=== PATIENT | male | born 1960 | race Caucasian/White ===

== ENCOUNTER → 2016-12-15 | Outpatient (CLI) | payer OTHER ==
--- NOTE | 2016-12-15 11:02 | ECHOF ---
Referral Reason:E78.5 Hyperlipidemia I10 HTN R00.1 Bradycardia MEASUREMENTS -------- HEIGHT: 177.8 cm WEIGHT: 122.5 kg BP: RVIDd: 3.3 cm (< 3.3) IVSd: 1.1 cm (0.6 - 1.1) LVIDd: 3.9 cm (3.9 - 5.3) LVPWd: 1.2 cm (0.6 - 1.1) IVSs: 1.5 cm LVIDs: 3.2 cm LVPWs: 1.3 cm LA Diam: 3.8 cm (2.7 - 3.8) MV EXCURSION: 22.213 mm (> 18.000) MV EF SLOPE: 133 mm/s (70 - 150) EPSS: 0.2 cm MV E Je: 0.58 m/s MV DecT: 140 ms MV A Je: 0.53 m/s MV E/A Ratio: 1.10 RAP: 5.00 mmHg RVSP: 14.20 mmHg FINDINGS -------- Sinus rhythm. This was a technically adequate study. Morbid Obesity The left ventricular size is normal. There is mild concentric left ventricular hypertrophy. Overa ll left ventricular systolic function is normal with, an EF between 55 - 60 %. The right ventricle is normal in size. The left atrial size is normal. The right atrial size is normal. The aortic valve is trileaflet, and appears structurally normal. No aortic stenosis or regurgitation. The mitral valve is normal. Mild mitral regurgitation is present. Mild tricuspid regurgitation present. There is no evidence of pulmonary hypertension. The right v entricular systolic pressure, as measured by Doppler, is 14.20mmHg. Trace/mild (physiologic) pulmonic regurgitation. The aortic root size is normal. There is no pericardial effusion. CONCLUSIONS -------- 1. Sinus rhythm. 2. This was a technically adequate study. 3. Morbid Obesity 4. There is mild concentric left ventricular hypertrophy. 5. Overall left ventricular systolic function is normal with, an EF between 55 - 60 %. 6. The left atrial size is normal. 7. The aortic valve is trileaflet, and appears structurally normal. No aortic stenosis or regurgitati on. 8. Mild mitral regurgitation is present. 9. Mild tricuspid regurgitation present. 10. There is no evidence of pulmonary hypertension. 11. Trace/mild (physiologic) pulmonic regurgitation. 12. The aortic root size is normal. 13. There is no pericardial effusion. ROUTER TENDER: Shahrzad Sharma RDCS
== END | disposition home or self-care (01) ==
LOC: RADECHMAIN 06:54
PROVIDERS: ATTEND Internal Medicine
DX: I08.1 Rheumatic disorders of both mitral and tricuspid valves (principal); E66.01 Morbid (severe) obesity due to excess calories; I10 Essential (primary) hypertension; E78.5 Hyperlipidemia, unspecified
CPT/HCPCS: 93306

== ENCOUNTER → 2021-06-03 | Outpatient (CLI) | payer BC ==
--- NOTE | 2021-06-03 08:53 | US ---
EXAMINATION TYPE: US abdomen complete DATE OF EXAM: 06/03/2021 COMPARISON: NONE CLINICAL HISTORY: R74.8. elevated liver enzymes EXAM MEASUREMENTS: Liver Length: 14.6 cm Gallbladder Wall: 0.3 cm CBD: 0.6 cm Spleen: 12.3 cm Right Kidney: 11.4 x 5.8 x 7.6 cm Left Kidney: 11.1 x 6.0 x 5.7 cm Pancreas: Obscured by bowel gas Liver: Increased attenuation Gallbladder: sludge ball and possible wall polyp seen. Evidence for sonographic Beltran's sign: No CBD: wnl Spleen: wnl Right Kidney: No hydronephrosis or masses seen Left Kidney: 2.9 x 2.2 x 2.6 cm cyst Upper IVC: wnl Abd Aorta: wnl The visualized liver is heterogeneously hyperechoic. Evaluation for focal masses suboptimal due to in creased attenuation. No focal mass or ductal dilatation seen on images saved. The intrahepatic portio n of the IVC and proximal abdominal aorta are within normal limits. Gallbladder shows internal 8mm no nmobile nonshadowing structure suspicious for small polyp. No shadowing mobile gallstones. Common theresa e duct is unremarkable. Suboptimal evaluation of pancreas on initial images due to shadowing from ove rlying bowel gas. The spleen is unremarkable. Kidneys are symmetric and free of hydronephrosis. Inc idental 2.9 cm benign-appearing thin-walled cyst left kidney midpole level. IMPRESSION: Heterogeneous hyperechoic appearance of liver consistent with diffuse fatty infiltration and/or underlying hepatocellular disease. Patient may benefit with ultrasound elastography or imaging guided random biopsy for further analysis.
== END | disposition home or self-care (01) ==
LOC: RADUSWWP 07:52
PROVIDERS: ATTEND Internal Medicine
DX: K76.89 Other specified diseases of liver (principal)
CPT/HCPCS: 76700

== ENCOUNTER 2022-07-17 08:48 | Inpatient (IN) | payer OTHER ==
[2022-07-17] MEDS ORDERED: SODIUM CHLORIDE 0.9% 1,000 ML IV STA (09:05)
--- NOTE | 2022-07-17 09:07 | ED ---
General Adult HPI - General Chief complaint: Recheck/Abnormal Lab/Rx Stated complaint: abn labs Time Seen by Provider: 07/17/22 08:55 Source: patient Mode of arrival: ambulatory Limitations: no limitations - History of Present Illness Initial comments: CC 2-year-old male presents to ED with a chief complaint of abnormal labs. She states 3 days ago was experiencing abdominal pain nausea vomiting diarrhea. Therefore states the following day saw his PCP to labs. Labs at that time showed a potassium of 6.6. He was advised to present to the ER then for further evaluation however notes that he did not want to our presents now for further evaluation. States now, all symptoms have been resolved. Denies chest pain, palpitations, shortness of breath. Has been eating and drinking normally since then. Pt is on olmesartan. No urinary complaints. No other symptoms. - Related Data Home Medications Medication Instructions Recorded Confirmed Olmesartan [Benicar] 20 mg PO DAILY 07/17/22 07/17/22 Pravastatin Sodium [Pravachol] 40 mg PO DAILY 07/17/22 07/17/22 Allergies Allergy/AdvReac Type Severity Reaction Status Date / Time No Known Allergies Allergy Verified 07/17/22 09:28 Review of Systems ROS Statement: Those systems with pertinent positive or pertinent negative responses have been documented in the HPI. ROS Other: All systems not noted in ROS Statement are negative. Past Medical History Past Medical History: Hyperlipidemia, Hypertension History of Any Multi-Drug Resistant Organisms: None Reported Past Surgical History: No Surgical Hx Reported Past Psychological History: No Psychological Hx Reported Smoking Status: Never smoker Past Alcohol Use History: None Reported Past Drug Use History: None Reported General Exam Limitations: no limitations Head exam: Present: atraumatic, normocephalic Eye exam: Present: normal appearance ENT exam: Present: mucous membranes moist Neck exam: Present: normal inspection Respiratory exam: Present: normal lung sounds bilaterally Cardiovascular Exam: Present: regular rate, normal rhythm GI/Abdominal exam: Present: soft (Nontender. No rebound guarding or rigidity.) Neurological exam: Present: alert, oriented X3 Psychiatric exam: Present: normal affect, normal mood Skin exam: Present: warm, dry Course Vital Signs 07/17/22 07/17/22 08:51 10:39 Temperature 97.2 F L 97.2 F L Pulse Rate 76 74 Respiratory 20 18 Rate Blood Pressure 155/73 94/66 O2 Sat by Pulse 99 97 Oximetry Medical Decision Making - Medical Decision Making Was pt. sent in by a medical professional or institution (, [facility], [facility], urgent care, hospital, or halfway...) When possible be specific @ -Dr. Snider Did you speak to anyone other than the patient for history (EMS, parent, family, police, friend...)? What history was obtained from this source @ -No Did you review nursing and triage notes (agree or disagree)? Why? @ -I reviewed and agree with nursing and triage notes Were old charts reviewed (outside hosp., previous admission, EMS record, old EKG, old radiological studies, urgent care reports/EKG's, halfway records)? Report findings @ -A few with previous laboratory studies performed which showed hyperkalemia at 6.6 and CRUZITO with BUN of 50 and creatinine 4.5. Differential Diagnosis (chest pain, altered mental status, abdominal pain women, abdominal pain men, vaginal bleeding, weakness, fever, dyspnea, syncope, headache, dizziness, GI bleed, back pain, seizure, CVA, palpatations, mental health, musculoskeletal)? @ -Hyperkalemia, cardiac arrest acute renal failure. This is not meant to be an all inclusive list. EKG interpreted by me (3pts min.). @ -As above X-rays interpreted by me (1pt min.). @ -None done CT interpreted by me (1pt min.). @ -None done U/S interpreted by me (1pt. min.). @ -None done What testing was considered but not performed or refused? (CT, X-rays, U/S, labs)? Why? @ -None What meds were considered but not given or refused? Why? @ -None Did you discuss the management of the patient with other professionals (professionals i.e. , [facility], [facility], lab, RT, psych nurse, social worker delinquency prevention, italian teacher, teacher, community service patrol officer, behavioral health case manager)? Give summary @ -No Was smoking cessation discussed for >3mins.? @ -No Was critical care preformed (if so, how long)? @ -No Were there social determinants of health that impacted care today? How? (Homelessness, low income, unemployed, alcoholism, drug addiction, transportation, low edu. Level, literacy, decrease access to med. care, usp, rehab)? @ -No Was there de-escalation of care discussed even if they declined (Discuss DNR or withdrawal of care, Hospice)? DNR status @ -No What co-morbidities impacted this encounter? (DM, HTN, Smoking, COPD, CAD, Cancer, CVA, ARF, Chemo, Hep., AIDS, mental health diagnosis, sleep apnea, morbid obesity)? @ -Hypertension Was patient admitted / discharged? Hospital course, mention meds given and route, prescriptions, significant lab abnormalities, going to OR and other pertinent info. @ -Admitted to observation. Laboratory studies revealed improving hyperkalemia at 5.6. Additionally CRUZITO improving with a BUN of 45 and creatinine of 1.9. Undiagnosed new problem with uncertain prognosis? @ -No Drug Therapy requiring intensive monitoring for toxicity (Heparin, Nitro, Insulin, Cardizem)? @ -No Were any procedures done? @ -No Diagnosis/symptom? @ -CRUZITO, Hyperkalemia Acute, or Chronic, or Acute on Chronic? @ -Acute Uncomplicated (without systemic symptoms) or Complicated (systemic symptoms)? @ -default Side effects of treatment? @ -No Exacerbation, Progression, or Severe Exacerbation? @ -No Poses a threat to life or bodily function? How? (Chest pain, [place], [place], pneumonia, PE, COPD, DKA, ARF, appy, cholecystitis, CVA, Diverticulitis, Homicidal, Suicidal, threat to staff... and all critical care pts) @ -Yes, hyperkalemia - Lab Data Result diagrams: 07/17/22 09:13 07/17/22 09:13 Lab Results 07/17/22 07/17/22 Range/Units 09:13 09:13 WBC 5.3 (3.8-10.6) k/uL RBC 5.10 (4.30-5.90) m/uL Hgb 15.9 (13.0-17.5) gm/dL Hct 45.4 (39.0-53.0) % MCV 89.0 (80.0-100.0) fL MCH 31.2 (25.0-35.0) pg MCHC 35.0 (31.0-37.0) g/dL RDW 12.0 (11.5-15.5) % Plt Count 171 (150-450) k/uL MPV 8.1 Neutrophils % 61 % Lymphocytes % 18 % Monocytes % 8 % Eosinophils % 10 % Basophils % 1 % Neutrophils # 3.2 (1.3-7.7) k/uL Lymphocytes # 0.9 L (1.0-4.8) k/uL Monocytes # 0.4 (0-1.0) k/uL Eosinophils # 0.6 (0-0.7) k/uL Basophils # 0.0 (0-0.2) k/uL Sodium 136 L (137-145) mmol/L Potassium 5.6 H (3.5-5.1) mmol/L Chloride 105 (98-107) mmol/L Carbon Dioxide 21 L (22-30) mmol/L Anion Gap 10 mmol/L BUN 45 H (9-20) mg/dL Creatinine 1.99 H (0.66-1.25) mg/dL Est GFR (CKD-EPI)AfAm 40 (>60 ml/min/1.73 sqM) Est GFR (CKD-EPI)NonAf 35 (>60 ml/min/1.73 sqM) Glucose 109 H (74-99) mg/dL Calcium 9.2 (8.4-10.2) mg/dL Magnesium 1.9 (1.6-2.3) mg/dL Total Bilirubin 0.9 (0.2-1.3) mg/dL AST 59 (17-59) U/L ALT 50 H (4-49) U/L Alkaline Phosphatase 107 (38-126) U/L Total Protein 7.6 (6.3-8.2) g/dL Albumin 4.4 (3.5-5.0) g/dL - EKG Data -: EKG Interpreted by [facility] EKG Comments: EKG shows a sinus rhythm without acute ST or T-wave changes. No evidence of peaked T waves. 64 bpm, ME interval 192, QRS 87, QT/QTc 350/360. Disposition Clinical Impression: CRUZITO (acute kidney injury) Disposition: ADMITTED IP TO THIS HOSP Referrals: Dillon Snider MD [Primary Care Provider] - 1-2 days Time of Disposition: 10:22
[2022-07-17 09:41] LABS: Basophils % (A) 1 %; Eosinophils # (A) 0.6 k/uL (0-0.7); Eosinophils % (A) 10 %; HCT 45.4 % (39.0-53.0); HGB 15.9 gm/dL (13.0-17.5); Lymphocytes # (A) 0.9 k/uL (1.0-4.8); Lymphocytes % (A) 18 %; MCH 31.2 pg (25.0-35.0); Mean Platelet Volume 8.1; Monocytes # (A) 0.4 k/uL (0-1.0); Monocytes % (A) 8 %; Neutrophils # (A) 3.2 k/uL (1.3-7.7); Neutrophils % (A) 61 %; Platelet Count 171 k/uL (150-450); WBC 5.3 k/uL (3.8-10.6)
[2022-07-17 09:52] LABS: ALT 50 U/L (4-49); AST 59 U/L (17-59); African American GFR (CKD) 40 (>60 ml/min/1.73 sqM); Albumin 4.4 g/dL (3.5-5.0); Alkaline Phosphatase 107 U/L (38-126); Anion Gap 10 mmol/L; Blood Urea Nitrogen 45 mg/dL (9-20); Calcium 9.2 mg/dL (8.4-10.2); Carbon Dioxide 21 mmol/L (22-30); Chloride 105 mmol/L (98-107); Glucose 109 mg/dL (74-99); Magnesium 1.9 mg/dL (1.6-2.3); Non-African American GFR(CKD) 35 (>60 ml/min/1.73 sqM); Potassium 5.6 mmol/L (3.5-5.1); Sodium 136 mmol/L (137-145); Total Bilirubin 0.9 mg/dL (0.2-1.3); Total Protein 7.6 g/dL (6.3-8.2)
[2022-07-17] MEDS ORDERED: NALOXONE 0.4 MG/ML 1 ML VIAL IV PRN (10:57)
[2022-07-17 11:03] LABS: Appearance,Urine Clear (Clear); Bilirubin,Urine Negative (Negative); Blood,Urine Negative (Negative); Color,Urine Light Yellow; Glucose,Urine (UA) Negative (Negative); Ketones,Urine Negative (Negative); Leukocyte Esterase,Urine Negative (Negative); Nitrite,Urine Negative (Negative); Protein,Urine Negative (Negative); Specific Gravity,Urine 1.008 (1.001-1.035); Urobilinogen,Urine <2.0 mg/dL (<2.0)
[2022-07-17] MEDS: SODIUM CHLORIDE 0.9% 1,000 ML IV SCH (11:12)
--- NOTE | 2022-07-17 15:58 | P.HPIM ---
History of Present Illness H&P Date: 07/17/22 Patient is a 62-year-old male with history of hypertension and dyslipidemia presenting from primary care office with concerns for acute kidney injury and hyperkalemia. Couple nights ago, he had GI upset, with nausea or vomiting. He also had loose stools. Morning, he presented to PCP office for his regular blood work. He was then called by his PCP office for hyperkalemia and acute kidney injury. He was recommended to come to hospital. He decided to come to the hospital the next day, lames that he is able to urinate while, and denies any significant other complaints at the moment. He denies any fevers, chills, chest pain, palpitations, abdominal pain urinary or bowel complaints at the moment. In the ED, temperature was 97.2, blood pressure 155/73, saturating at 99% on room air, pulse 76, respiratory rate 20. WBC 5.3, hemoglobin 15.9, sodium 136, potassium 5.6, creatinine 1.99, urinalysis negative. EKG shows normal sinus rhythm. Patient admitted for acute kidney injury likely in the setting of dehydration. He was given a total of 1 L of normal saline in the ED. Pertinent positives and negatives as discussed in HPI, a complete review of systems was performed and all other systems are negative. Patient seen and examined at bedside. Vital signs reviewed General: nontoxic, no distress, appears at stated age Derm: warm, dry Head: atraumatic, normocephalic, symmetric Eyes: EOMI, no lid lag, anicteric sclera, pupils equal round reactive to light ENT: Nose and ears atraumatic Neck: No thyromegaly, supple Mouth: no lip lesion, mucus membranes moist Cardiovascular: S1S2 reg, no murmur, no edema Lungs: clear to auscultation bilateral, no rhonchi, no rales, no wheeze, no accessory muscle use Abdominal: soft, nontender to palpation, no guarding, no appreciable organomegaly Ext: no gross muscle atrophy, muscle strength muscle strength 5 out of 5 in all 4 extremities, no contractures Neuro: CN II-XII grossly intact Psych: Alert, oriented, appropriate affect Assessment/Plan: Active: Nonoliguric acute kidney injury Hyperkalemia Recent episode of diarrhea History of hypertension -Renal ultrasound ordered -Continue to monitor urine output, BMP tomorrow -Potassium and creatinine down trending compared to when patient presented at PCP office -Continue normal saline at 75 mL an hour -Hold ARB, might benefit from CCB in the future Chronic: Dyslipidemia The patient is admitted with an anticipated less than 2 midnight stay as observation status for evaluation of acute kidney injury. Surrogate decision-maker: none CODE STATUS: Full Code DVT prophylaxis: Subcu heparin Anticipated discharge date: Pending clinical course Anticipated discharge place: Pending clinical course A total of 55 minutes was spent on the care of this complex patient more than 50% of the time was spent in counseling and care coordination. Past Medical History Past Medical History: Hyperlipidemia, Hypertension History of Any Multi-Drug Resistant Organisms: None Reported Past Surgical History: No Surgical Hx Reported Past Psychological History: No Psychological Hx Reported Smoking Status: Never smoker Past Alcohol Use History: None Reported Past Drug Use History: None Reported Medications and Allergies Home Medications Medication Instructions Recorded Confirmed Type Olmesartan [Benicar] 20 mg PO DAILY 07/17/22 07/17/22 History Pravastatin Sodium [Pravachol] 40 mg PO DAILY 07/17/22 07/17/22 History Allergies Allergy/AdvReac Type Severity Reaction Status Date / Time No Known Allergies Allergy Verified 07/17/22 09:28 Physical Exam Vitals: Vital Signs Temp Pulse Resp BP Pulse Ox 07/17/22 14:27 59 L 18 95/57 98 07/17/22 10:39 97.2 F L 74 18 94/66 97 07/17/22 08:51 97.2 F L 76 20 155/73 99 Intake and Output 07/17/22 07/17/22 07/17/22 06:59 14:59 22:59 Other: Weight 120.202 kg Results CBC & Chem 7: 07/17/22 09:13 07/17/22 09:13 Labs: Abnormal Lab Results - Last 24 Hours (Table) 07/17/22 07/17/22 Range/Units 09:13 09:13 Lymphocytes # 0.9 L (1.0-4.8) k/uL Sodium 136 L (137-145) mmol/L Potassium 5.6 H (3.5-5.1) mmol/L Carbon Dioxide 21 L (22-30) mmol/L BUN 45 H (9-20) mg/dL Creatinine 1.99 H (0.66-1.25) mg/dL Glucose 109 H (74-99) mg/dL ALT 50 H (4-49) U/L
--- NOTE | 2022-07-17 16:03 | US ---
EXAMINATION TYPE: US kidneys/renal and bladder DATE OF EXAM: 07/17/2022 COMPARISON: 06/03/2021 CLINICAL INDICATION: Male, 62 years old with history of CRUZITO; abnormal labs EXAM MEASUREMENTS: Right Kidney: 9.8x5.5x5.0 cm Left Kidney: 11.4x6.2x4.6 cm Right Kidney: several non shadowing echogenic foci seen without Left Kidney: several anechoic areas notes, largest two noted measuring 3.0x2.3x2.2cm on mid lateral kidney and 2.2x2.0x2.0cm on the superior medial kidney Bladder: wnl Bilateral Jets seen: Yes There is no evidence for hydronephrosis at this point in time. The urinary bladder is anechoic. Arian ateral ureteral jets are seen. IMPRESSION: 1. No evidence of obstructive uropathy. 2. Left renal cyst.
[2022-07-17] MEDS: HEPARIN SODIUM,PORCINE/PF 5,000 UNIT/0.5 ML SYRINGE SQ SCH (17:57)
[2022-07-18] MEDS: HEPARIN SODIUM,PORCINE/PF 5,000 UNIT/0.5 ML SYRINGE SQ SCH ×4 (01:19→23:08)
[2022-07-18] MEDS: SODIUM CHLORIDE 0.9% 1,000 ML IV SCH ×2 (01:19→18:43)
[2022-07-18] MEDS: PRAVASTATIN SODIUM 40 MG TAB PO SCH (07:53)
[2022-07-18 08:25] LABS: African American GFR (CKD) 61 (>60 ml/min/1.73 sqM); Anion Gap 7 mmol/L; Blood Urea Nitrogen 32 mg/dL (9-20); Calcium 9.2 mg/dL (8.4-10.2); Carbon Dioxide 20 mmol/L (22-30); Chloride 108 mmol/L (98-107); Glucose 91 mg/dL (74-99); Non-African American GFR(CKD) 52 (>60 ml/min/1.73 sqM); Sodium 135 mmol/L (137-145)
[2022-07-18 08:56] LABS: Potassium 6.4 mmol/L (3.5-5.1)
[2022-07-18] MEDS ORDERED: CALCIUM GLUCONATE IN NACL 1 GM in SALINE 1 100ML.BAG IVPB ONE (09:10)
[2022-07-18] MEDS ORDERED: INSULIN REGULAR 100 UNIT/ML VIAL (IV) IV ONE (09:10)
[2022-07-18] MEDS ORDERED: SODIUM POLYSTYRENE SULFONATE 15 GM/60 ML BOTTLE PO ONE (09:10)
[2022-07-18] MEDS ORDERED: DEXTROSE 10% IN WATER 500 ML in EMPTY BAG 1 BAG IV SCH (09:15)
[2022-07-18 09:32] LABS: Glucose,Whole Blood 124 mg/dL (70-110)
--- NOTE | 2022-07-18 15:32 | P.PN ---
Subjective Progress Note Date: 07/18/22 Hospital Course: 62-year-old male with history of hypertension and dyslipidemia presenting from primary care office with concerns for acute kidney injury and hyperkalemia. In the ED, temperature was 97.2, blood pressure 155/73, saturating at 99% on room air, pulse 76, respiratory rate 20. WBC 5.3, hemoglobin 15.9, sodium 136, potassium 5.6, creatinine 1.99, urinalysis negative. EKG shows normal sinus rhythm. Patient admitted for acute kidney injury likely in the setting of dehydration. He was given a total of 1 L of normal saline in the ED. Renal function improved. Hyperkalemia worsened. Received treatment. Subjective: Patient seen and examined at bedside. No acute events overnight. Pertinent positives and negatives as discussed above, a complete review of systems was performed and all other systems are negative. Vitals Signs Reviewed. General: nontoxic, no distress, appears at stated age Derm: warm, dry Head: atraumatic, normocephalic, symmetric Eyes: EOMI, no lid lag, anicteric sclera Mouth: no lip lesion, mucus membranes moist Cardiovascular: S1S2 reg, no murmur Lungs: CTA bilateral, no rhonchi, no rales , no accessory muscle use Abdominal: soft, nontender to palpation, no guarding, no appreciable organomegaly Ext: no gross muscle atrophy, no edema, no contractures Neuro: CN II-XI grossly intact, no focal neuro deficits Psych: Alert, oriented, appropriate affect Data Reviewed Today: Pertinent Labs: Sodium 135, potassium 6.4, creatinine 1.43 EKG independently interpreted shows normal sinus rhythm Renal ultrasound report reviewed, no obstructive uropathy Assessment and Plan: Active: Nonoliguric acute kidney injury, resolving Hyperkalemia Recent episode of diarrhea History of hypertension -hyperkalemia treamtent with 10 IV insulin, dextrose, calcium gluconate, Kayexalate ,repeat K levels ordered -Continue to monitor urine output, BMP tomorrow -Continue normal saline at 75 mL an hour -Hold ARB, might benefit from CCB in the future DVT ppx: sq heparin Code status: Full code Anticipated discharge place: Pending clinical course Anticipated discharge time: Pending clinical course Objective - Vital Signs Vital signs: Vital Signs Temp 97.9 F 07/18/22 12:19 Pulse 64 07/18/22 12:19 Resp 16 06/10/23 12:19 BP 119/73 07/18/22 12:19 Pulse Ox 96 07/18/22 12:19 FiO2 Intake & Output 07/17/22 07/18/22 07/18/22 18:59 06:59 18:59 Weight 120.202 kg Other: Voiding Method Toilet - Labs CBC & Chem 7: 07/17/22 09:13 07/18/22 14:19 Labs: Abnormal Lab Results - Last 24 Hours (Table) 07/18/22 07/18/22 07/18/22 Range/Units 07:47 09:31 14:19 Sodium 135 L (137-145) mmol/L Potassium 6.4 H* 5.6 H (3.5-5.1) mmol/L Chloride 108 H (98-107) mmol/L Carbon Dioxide 20 L (22-30) mmol/L BUN 32 H (9-20) mg/dL Creatinine 1.43 H (0.66-1.25) mg/dL POC Glucose (mg/dL) 124 H (70-110) mg/dL
[2022-07-19] MEDS: SODIUM CHLORIDE 0.9% 1,000 ML IV SCH ×2 (07:11→22:18)
[2022-07-19] MEDS: PRAVASTATIN SODIUM 40 MG TAB PO SCH (08:00)
[2022-07-19] MEDS: HEPARIN SODIUM,PORCINE/PF 5,000 UNIT/0.5 ML SYRINGE SQ SCH ×2 (08:00→15:59)
[2022-07-19 13:03] LABS: African American GFR (CKD) 66 (>60 ml/min/1.73 sqM); Anion Gap 8 mmol/L; Blood Urea Nitrogen 24 mg/dL (9-20); Calcium 9.2 mg/dL (8.4-10.2); Carbon Dioxide 22 mmol/L (22-30); Chloride 106 mmol/L (98-107); Glucose 88 mg/dL (74-99); Non-African American GFR(CKD) 57 (>60 ml/min/1.73 sqM); Potassium 5.8 mmol/L (3.5-5.1); Sodium 136 mmol/L (137-145)
[2022-07-19] MEDS ORDERED: SODIUM POLYSTYRENE SULFONATE 15 GM/60 ML BOTTLE PO STA (13:18)
--- NOTE | 2022-07-19 14:57 | P.PN ---
Subjective Progress Note Date: 07/19/22 Hospital Course: 62-year-old male with history of hypertension and dyslipidemia presenting from primary care office with concerns for acute kidney injury and hyperkalemia. In the ED, temperature was 97.2, blood pressure 155/73, saturating at 99% on room air, pulse 76, respiratory rate 20. WBC 5.3, hemoglobin 15.9, sodium 136, potassium 5.6, creatinine 1.99, urinalysis negative. EKG shows normal sinus rhythm. Patient admitted for acute kidney injury likely in the setting of dehydration. He was given a total of 1 L of normal saline in the ED. Renal function improved. Renal ultrasound report reviewed, no obstructive uropathy. Hyperkalemia is persistent. Subjective: Patient seen and examined at bedside. No acute events overnight. Pertinent positives and negatives as discussed above, a complete review of systems was performed and all other systems are negative. Vitals Signs Reviewed. General: nontoxic, no distress, appears at stated age Derm: warm, dry Head: atraumatic, normocephalic, symmetric Eyes: EOMI, no lid lag, anicteric sclera Mouth: no lip lesion, mucus membranes moist Cardiovascular: S1S2 reg, no murmur Lungs: CTA bilateral, no rhonchi, no rales , no accessory muscle use Abdominal: soft, nontender to palpation, no guarding, no appreciable organomegaly Ext: no gross muscle atrophy, no edema, no contractures Neuro: CN II-XI grossly intact, no focal neuro deficits Psych: Alert, oriented, appropriate affect Data Reviewed Today: Pertinent Labs: Sodium 136, potassium 5.8, creatinine 1.34 Assessment and Plan: Active: Nonoliguric acute kidney injury, resolving Hyperkalemia Recent episode of diarrhea History of hypertension -hyperkalemia treamtent kayexalate -Continue to monitor urine output, BMP tomorrow -Continue normal saline at 75 mL an hour -Hold ARB, might benefit from CCB in the future DVT ppx: sq heparin Code status: Full code Anticipated discharge place: home Anticipated discharge time: Pending clinical course Objective - Vital Signs Vital signs: Vital Signs Temp 98.4 F 07/19/22 12:45 Pulse 72 07/19/22 12:45 Resp 16 07/19/22 12:45 BP 112/71 07/19/22 12:45 Pulse Ox 96 07/19/22 12:45 FiO2 Intake & Output 07/18/22 07/19/22 07/19/22 18:59 06:59 18:59 Output Total 1150 Balance -1150 Output: Urine 1150 Other: Voiding Method Toilet Toilet Toilet Urinal Urinal - Labs CBC & Chem 7: 07/17/22 09:13 07/19/22 12:29 Labs: Abnormal Lab Results - Last 24 Hours (Table) 07/19/22 Range/Units 12:29 Sodium 136 L (137-145) mmol/L Potassium 5.8 H (3.5-5.1) mmol/L BUN 24 H (9-20) mg/dL Creatinine 1.34 H (0.66-1.25) mg/dL
[2022-07-20] MEDS: HEPARIN SODIUM,PORCINE/PF 5,000 UNIT/0.5 ML SYRINGE SQ SCH ×3 (00:03→17:47)
[2022-07-20 06:15] LABS: African American GFR (CKD) 68 (>60 ml/min/1.73 sqM); Anion Gap 7 mmol/L; Blood Urea Nitrogen 23 mg/dL (9-20); Calcium 8.9 mg/dL (8.4-10.2); Carbon Dioxide 21 mmol/L (22-30); Chloride 108 mmol/L (98-107); Glucose 80 mg/dL (74-99); Non-African American GFR(CKD) 59 (>60 ml/min/1.73 sqM); Potassium 5.4 mmol/L (3.5-5.1); Sodium 136 mmol/L (137-145)
[2022-07-20] MEDS ORDERED: SODIUM ZIRCONIUM CYCLOSILICATE 10 GM PACKET PO ONE ×2 (09:00→17:34)
[2022-07-20] MEDS: PRAVASTATIN SODIUM 40 MG TAB PO SCH (09:28)
[2022-07-20] MEDS: SODIUM CHLORIDE 0.9% 1,000 ML IV SCH (11:31)
[2022-07-20 11:37] VITALS: BP 123/77; PULSE 63; RESP 16; TEMP 98.1
[2022-07-20 15:01] LABS: African American GFR (CKD) 75 (>60 ml/min/1.73 sqM); Anion Gap 8 mmol/L; Blood Urea Nitrogen 19 mg/dL (9-20); Calcium 9.2 mg/dL (8.4-10.2); Carbon Dioxide 22 mmol/L (22-30); Chloride 108 mmol/L (98-107); Glucose 83 mg/dL (74-99); Non-African American GFR(CKD) 65 (>60 ml/min/1.73 sqM); Potassium 5.2 mmol/L (3.5-5.1); Sodium 138 mmol/L (137-145)
--- NOTE | 2022-07-20 16:03 | US ---
EXAMINATION TYPE: US renal artery duplex complet DATE OF EXAM: 07/20/2022 COMPARISON: 07/17/2022 CLINICAL INDICATION: Male, 62 years old with history of renal artery stenosis; high potassium, been o n BP meds for 30 years and controlled MEASUREMENTS: RENAL SIZE: Rt Kidney: 9.8 x 5.5 x 5.0cm Lt Kidney: 11.4 x 6.2 x 4.6cm RESISTANCE INDEX Right: 0.7 Left: 0.6 RA/AO RATIO (< 3.5 ) Right: 1.3 Left: 1.6 RA VELOCITY ( < 180 cm/s) Right: 66.9 Left: 80.6 Unable to obtain right proximal renal artery due to bowel gas, no obvious stenosis seen Previously noted left renal cyst not included in the [id number]. IMPRESSION: There is some limitation exam as discussed above but no diagnostic evidence of renal artery stenosis.
--- NOTE | 2022-07-20 17:48 | P.DS ---
Providers Date of admission: 07/17/22 12:42 Expected date of discharge: 07/20/22 Attending physician: Jamel Velasquez MD Primary care physician: Dillon Snider MD Hospital Course: Discharge Diagnosis: Acute kidney injury, nonoliguirc Hyperkalemia HTN HLD Hospital Course: Patient is a 62-year-old male for history of hypertension and dyslipidemia who presented at the direction of his primary care physician due to acute kidney injury and hyperkalemia. In the emergency department his vital signs within normal limits. Laboratory analysis was remarkable for hemoglobin of 15.9, potassium 5.6, creatinine of 1.99. EKG demonstrated normal sinus rhythm. Patient was admitted for acute kidney injury and hyperkalemia. He was given 1 L of normal saline in the ER and then was continued on IV fluids. His ARB withheld. He underwent a renal ultrasound which showed no signs of obstructive uropathy but did demonstrate a left-sided renal cyst, which was known to the patient from 2 years ago. He had persistent hyperkalemia requiring multiple doses of Kayexalate and then lokelma,. He also received temporizing measures of insulin, glucose, and calcium. His renal function continued to improve. In his creatinine was down to 1.2 (maximum 3) a potassium of 5.2 (maximum 6.4,). He had a renal doppler completed which showed no evidence of renal artery stenosis. He was determined stable for discharge home with outpatient follow-up. Follow-up: Dr. Snider on 07/22/22 as previously scheduled, lab will be repeated at that appointment. He will stay off olmesartan and will check blood pressure daily. Patient seen and examined at bedside. Doing well, no complaints. Wants to go home, but does understand why he has remained hospitalized. Vital signs reviewed and stable. General: nontoxic, no distress, appears at stated age Cardiovascular: S1S2 reg, no murmur, positive posterior tibial pulse bilateral, Lungs: CTA bilateral, no rhonchi, no rales , no accessory muscle use Ext: no gross muscle atrophy, no edema b/l lower extremities, no contractures Neuro: CN II-XI grossly intact, no focal neuro deficits Psych: Alert, oriented, appropriate affect A total of 45 minutes of time were spent preparing this complex discharge summary. Patient was discharged on 07/20/22. This dictation was prepared using dragon medical voice recognition software. Though every attempt is made to correct errors during dictation some may still exist. Plan - Discharge Summary Discharge Rx Participant: No New Discharge Prescriptions: Continue Pravastatin Sodium [Pravachol] 40 mg PO DAILY Discontinued Olmesartan [Benicar] 20 mg PO DAILY Discharge Medication List Pravastatin Sodium [Pravachol] 40 mg PO DAILY 07/17/22 [History] Follow up Appointment(s)/Referral(s): Dillon Snider MD [Primary Care Provider] - 07/22/22 Activity/Diet/Wound Care/Special Instructions: Activity: as tolerated Diet: heart healthy Special Instructions: Lab work in 2 days: Dr. Snider will order in office I spoke with Dr. Snider and she knows to order these labs Check Blood pressure once daily and make a log to bring to your appointment with Dr. Snider Thank you for trusting us with your care, we wish you well on your journey to better health. Discharge Disposition: HOME SELF-CARE
== END 2022-07-20 18:44 | disposition home or self-care (01) | DRG 641 ==
LOC: EC 08:48 → 5NMEDONC 12:42
PROVIDERS: ADMIT Student in an Organized Health Care Education/Training Program; ATTEND Student in an Organized Health Care Education/Training Program
DX: E86.0 Dehydration (principal); N17.9 Acute kidney failure, unspecified; E87.5 Hyperkalemia; I10 Essential (primary) hypertension; E78.5 Hyperlipidemia, unspecified; N28.1 Cyst of kidney, acquired; Z79.899 Other long term (current) drug therapy
CPT/HCPCS: 36415; 76770; 80048; 80053; 81003; 83735; 84132; 85025; 93005; 93975; 96360; 96361; 99285